=== PATIENT | male | born 1975 | race African-American/Black ===

== ENCOUNTER 2018-11-03 14:06 | Emergency (ER) | payer SELFPAY ==
[~2018-11-03] VITALS: Ht 175.3 cm; Wt 76.0 kg
[2018-11-03] MEDS ORDERED: CEFTRIAXONE SODIUM 250 MG/VIAL IM ONE (15:15)
[2018-11-03] MEDS ORDERED: KETOROLAC 60MG/2ML VIAL IM ONE (15:15)
[2018-11-03] MEDS ORDERED: STERILE WATER FOR INJECTION 10ML VIAL ONE (15:23)
[2018-11-03 15:25] VITALS: BP 124/59
== END 2018-11-03 16:23 | disposition home or self-care (01) ==
LOC: ER 14:06
DX: K08.89 Other specified disorders of teeth and supporting structures (principal); R22.0 Localized swelling, mass and lump, head; F12.10 Cannabis abuse, uncomplicated; R11.10 Vomiting, unspecified; Z87.891 Personal history of nicotine dependence
CPT/HCPCS: 96372; 99283; A4216; J0696; J1885

== ENCOUNTER 2022-08-23 09:53 | Emergency (ER) | payer MEDICAID ==
[~2022-08-23] VITALS: Ht 170.2 cm; Wt 79.0 kg
[2022-08-23 10:16] VITALS: BP 120/76
[2022-08-23] MEDS ORDERED: NAPR-1176 MT (12:34)
[2022-08-23] MEDS: KETOROLAC 15MG/ML VIAL IV ONE ×2 (12:47→12:49)
[2022-08-23] MEDS ORDERED: KETOROLAC 15MG/ML VIAL IM ONE (13:00)
== END 2022-08-23 12:57 | disposition home or self-care (01) ==
LOC: ER 10:00
DX: M79.605 Pain in left leg (principal); F12.10 Cannabis abuse, uncomplicated
CPT/HCPCS: 96372; 99283; J1885

== ENCOUNTER 2024-05-22 05:04 | Emergency (ER) | payer MEDICAID ==
[~2024-05-22] VITALS: Ht 175.3 cm; Wt 77.9 kg
[~2024-05-22 05:04] MED LIST: NAPR-1176 MT
[2024-05-22 05:17] VITALS: BP 128/86; PULSE 79; RESP 16; TEMP 98; O2SAT 99
== END 2024-05-22 06:55 | disposition home or self-care (01) ==
LOC: ER 05:04
DX: L72.0 Epidermal cyst (principal); F12.10 Cannabis abuse, uncomplicated
CPT/HCPCS: 99281; Z7610